=== PATIENT | male | born 1965 | race Caucasian/White ===

== ENCOUNTER 2019-02-04 22:08 | Emergency (ER) | payer BC, OTHER ==
[2019-02-04] MEDS ORDERED: Sodium Chloride 0.9% 1000 ML 1,000 ML ONE (22:37)
[2019-02-04] MEDS ORDERED: Hydromorphone 1 mg/ml Ampule ONE (22:40)
[2019-02-04] MEDS: Sodium Chloride 0.9% 1000 ML 1,000 ML IV STA (22:41)
[2019-02-04] MEDS: DILAUDID 2 MG INJECTION IV PRN (22:42)
[2019-02-04] MEDS ORDERED: LOPRESSOR 5 MG/5 ML INJECTION IV ONE (23:38)
[2019-02-04] MEDS: LOPRESSOR 5 MG/5 ML INJECTION IV ONE (23:39)
[2019-02-05] MEDS ORDERED: DILAUDID 2 MG INJECTION IV PRN (00:10)
[2019-02-05] MEDS ORDERED: Hydromorphone 1 mg/ml Ampule ONE (00:15)
[2019-02-05] MEDS: DILAUDID 2 MG INJECTION IV STA (00:17)
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
[2019-02-05] MEDS ORDERED: Norco 10/325 MG Tablet ONE (00:27)
[2019-02-05] MEDS: Norco 10/325 MG Tablet PO ONE (00:31)
[2019-02-05 01:09] VITALS: BP 182/130; PULSE 90; O2SAT 96
[2019-02-05] MEDS ORDERED: TORAdol 30 mg Injection ONE (01:16)
[2019-02-05] MEDS: TORAdol 30 mg Injection IV ONE (01:17)
== END 2019-02-05 01:36 | disposition home or self-care (01) ==
LOC: ED 22:08
DX: T33.832A Superficial frostbite of left toe(s), initial encounter (principal); S90.425A Blister (nonthermal), left lesser toe(s), initial encounter; W93.8XXA Exposure to other excessive cold of man-made origin, initial encounter; Y93.89 Activity, other specified; Y92.89 Other specified places as the place of occurrence of the external cause
CPT/HCPCS: 96360; 96374; 96375; 96376; 99284; J1170; J1885; A9270-GY

== ENCOUNTER 2019-02-12 14:41 | Inpatient (IN) | payer OTHER ==
[2019-02-12] MEDS ORDERED: Sodium Chloride 0.9% 1000 ML 1,000 ML IV STA (15:32)
[2019-02-12] MEDS ORDERED: Zofran 4 MG/2 ML VIAL IV ONE (15:32)
[2019-02-12] MEDS ORDERED: Hydromorphone 1 mg/ml Ampule IV ONE (15:34)
[2019-02-12 16:34] LABS: Absolute Neutrophil Ct (ANC) 7.81 (1.4-6.9); BASOPHIL % 0.2 % (0.0-0.4); Basophil (Absolute #) 0.03 (0-0.4); Eosinophil % 8.7 % (0.00-5.0); Eosinophil (Absolute #) 1.05 (0-0.5); Hematocrit 44.9 % (42-50); Hemoglobin 15.3 gm/dl (12.5-18.0); Lymphocyte (Absolute #) 2.48 (1.0-4.6); Lymphocytes % 20.6 % (24.0-44.0); Mean Cell Volume 87.7 fl (78-100); Mean Corpuscular Hemoglobin 29.9 pg (26-32); Mean Corpuscular Hgb Concent. 34.1 g/dl (32-36); Mean Platelet Volume 10.3 fl (6-9.5); Monocyte (Absolute #) 0.64 (0.0-1.3); Monocytes % 5.3 % (0.0-12.0); Neutrophil % 65.2 % (36.0-66.0); Platelet Count 231 K/mm3 (150-450); Red Blood Count 5.12 M/mm3 (4.1-5.6); Red Cell Distribution Width 12.9 % (11.5-14.0)
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
[2019-02-12 16:44] LABS: ALBUMIN 4.8 g/dL (3.5-5.0); ANION GAP 17.5 MEQ/L (5-15); BILIRUBIN,TOTAL 0.7 mg/dL (0.2-1.3); Creatinine 1 1.35 mg/dL (0.66-1.25); Potassium 4.1 mmol/L (3.5-5.1); Total Protein 9.1 g/dL (6.3-8.2)
[2019-02-12] MEDS ORDERED: Hydromorphone 1 mg/ml Ampule ONE ×2 (16:54→21:16)
[2019-02-12] MEDS ORDERED: ZOFRAN ODT 4 MG ONE (16:54)
[2019-02-12] MEDS ORDERED: Hydromorphone 1 mg/ml Ampule IM ONE (16:56)
[2019-02-12] MEDS ORDERED: ZOFRAN ODT 4 MG PO ONE (16:58)
[2019-02-12] MEDS ORDERED: Catapres 0.1 MG PO ONE (17:15)
[2019-02-12] MEDS ORDERED: Catapres 0.1 MG ONE (17:19)
[2019-02-12] MEDS ORDERED: Sodium Chloride 0.9% 1000 ML 1,000 ML ONE (18:36)
[2019-02-12] MEDS ORDERED: VASOTEC I.V. 2.5 MG IV ONE ×2 (20:18→20:20)
[2019-02-12] MEDS ORDERED: Unasyn 3GM / NaCl 100ML 3 GM/100 ML IVPB IV STA (20:19)
[2019-02-12] MEDS ORDERED: Unasyn 3GM / NaCl 100ML 3 GM/100 ML IVPB ONE (20:20)
[2019-02-12] MEDS ORDERED: VASOTEC I.V. 2.5 MG IV PRN (21:14)
[2019-02-12] MEDS ORDERED: Zofran 4 MG/2 ML VIAL IV PRN (21:14)
[2019-02-12] MEDS ORDERED: DILAUDID 2 MG INJECTION IV PRN (21:14)
[2019-02-12] MEDS ORDERED: TYLENOL 325 MG PO PRN (21:14)
[2019-02-12] MEDS: DILAUDID 2 MG INJECTION IV PRN (23:49)
[2019-02-13] MEDS: FLAGYL 500 MG IVPB 500 MG/100 ML BAG IV SCH ×4 (00:35→17:08)
[2019-02-13] MEDS: DILAUDID 2 MG INJECTION IV PRN ×9 (01:42→21:30)
[2019-02-13] MEDS: Unasyn 3GM / NaCl 100ML 3 GM/100 ML IVPB IV SCH ×4 (02:29→17:07)
[2019-02-13] MEDS: Sodium Chloride 0.9% 1000 ML 1,000 ML IV SCH ×2 (04:16→22:09)
[2019-02-13 05:15] LABS: Absolute Neutrophil Ct (ANC) 5.19 (1.4-6.9); BASOPHIL % 0.2 % (0.0-0.4); Basophil (Absolute #) 0.02 (0-0.4); Eosinophil % 12.6 % (0.00-5.0); Eosinophil (Absolute #) 1.16 (0-0.5); Hematocrit 38.6 % (42-50); Hemoglobin 13.2 gm/dl (12.5-18.0); Lymphocyte (Absolute #) 2.29 (1.0-4.6); Lymphocytes % 24.8 % (24.0-44.0); Mean Cell Volume 88.7 fl (78-100); Mean Corpuscular Hemoglobin 30.3 pg (26-32); Mean Corpuscular Hgb Concent. 34.2 g/dl (32-36); Mean Platelet Volume 10.3 fl (6-9.5); Monocyte (Absolute #) 0.58 (0.0-1.3); Monocytes % 6.3 % (0.0-12.0); Neutrophil % 56.1 % (36.0-66.0); Platelet Count 213 K/mm3 (150-450); Red Blood Count 4.35 M/mm3 (4.1-5.6); Red Cell Distribution Width 12.7 % (11.5-14.0); White Blood Count 9.2 K/mm3 (4.0-10.5)
[2019-02-13 05:29] LABS: ANION GAP 12.9 MEQ/L (5-15); BLOOD UREA NITROGEN 23 mg/dL (9-20); CHLORIDE 106 mmol/L (98-107); Calcium 8.9 mg/dL (8.4-10.2); Carbon Dioxide 24 mmol/L (22-30); Creatinine 1 1.08 mg/dL (0.66-1.25); Glucose 92 mg/dL (74-106); Potassium 4.2 mmol/L (3.5-5.1); SODIUM 139 mmol/L (137-145)
[2019-02-13] MEDS ORDERED: PHARMACY DOSING REQUIRED: VANCOMYCIN IV ONE (08:48)
[2019-02-13] MEDS: VANCOCIN 1 GM VIAL*** 1.25 GM in Sodium Chloride 0.9% 250 ML 250 ML IV SCH ×2 (09:54→22:07)
[2019-02-13] MEDS: Nicoderm CQ 21 MG TOP SCH (10:27)
[2019-02-13] MEDS: Zestril 5 MG PO SCH (10:27)
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
[2019-02-13 10:53] LABS: Barbiturate,Urine NEGATIVE (NEGATIVE); Benzodiazepine,Urine NEGATIVE (NEGATIVE); Cocaine,Urine NEGATIVE (NEGATIVE); Methadone,Urine NEGATIVE (NEGATIVE); Opiate,Urine POSITIVE (NEGATIVE); PCP,Urine NEGATIVE (NEGATIVE); THC,Urine NEGATIVE (NEGATIVE)
[2019-02-13 11:39] LABS: Amphetamine,Urine POSITIVE (NEGATIVE)
--- NOTE | 2019-02-13 12:51 | XRAY ---
Indication: Ultrasound guidance for PICC line placement. Initial sonographic imaging of the right upper extremity was performed for localization of patent veins. A patent basilic vein identified above the elbow. Ultrasound guidance was then used for PICC line insertion. Full PICC line insertion is reported separately.
--- NOTE | 2019-02-13 12:51 | XRAY ---
Indication: Long-term IV access and therapy for left foot osteomyelitis. Informed consent obtained. Patient was placed on the fluoroscopic table in a supine position. Initial sonographic imaging of the right upper extremity was performed for localization of patent veins. The right upper extremity was then prepped and draped in sterile fashion. Tourniquet applied. 1% lidocaine plain used for local anesthesia. Using ultrasound guidance and a micropuncture needle, a basilic vein above the elbow was successfully percutaneously cannulized. A floppy tip 0.018 guidewire inserted. Tourniquet released. Needle was exchanged for a 5 Martiniquais dilator peel-away sheath catheter. Ultimately a 5 Martiniquais double-lumen PICC line was inserted over a longer 0.018 guidewire with the tip positioned in the distal SVC using fluoroscopic guidance. Guidewire removed. Both ports flushed with heparinized saline. Catheter was secured. Postoperative instructions and orders given. Patient discharged in good condition. Impression: Technically successful right upper extremity PICC line placement using ultrasound and fluoroscopic guidance. No immediate complications. Approximately 3 cc blood loss. Approximately 0.3 minute of fluoroscopy used. Catheter length is 40 cm.
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
[2019-02-13] MEDS ORDERED: TORAdol 30 mg Injection IV PRN (21:41)
[2019-02-13] MEDS ORDERED: Unasyn 3GM / NaCl 100ML 3 GM/100 ML IVPB ONE (23:50)
[2019-02-14] MEDS: FLAGYL 500 MG IVPB 500 MG/100 ML BAG IV SCH ×4 (00:05→17:12)
[2019-02-14] MEDS: Unasyn 3GM / NaCl 100ML 3 GM/100 ML IVPB IV SCH ×4 (00:05→17:13)
[2019-02-14] MEDS: DILAUDID 2 MG INJECTION IV PRN ×7 (02:43→17:42)
[2019-02-14] MEDS: TORAdol 30 mg Injection IV PRN ×4 (04:12→22:14)
[2019-02-14] MEDS ORDERED: Unasyn 3GM / NaCl 100ML 3 GM/100 ML IVPB ONE (04:48)
[2019-02-14 05:16] LABS: BASOPHIL % 0.2 % (0.0-0.4); Basophil (Absolute #) 0.02 (0-0.4); Eosinophil (Absolute #) 0.98 (0-0.5); Hematocrit 39.3 % (42-50); Hemoglobin 13.5 gm/dl (12.5-18.0); Lymphocyte (Absolute #) 1.52 (1.0-4.6); Lymphocytes % 18.6 % (24.0-44.0); Mean Cell Volume 87.9 fl (78-100); Mean Corpuscular Hemoglobin 30.2 pg (26-32); Mean Corpuscular Hgb Concent. 34.4 g/dl (32-36); Mean Platelet Volume 10.7 fl (6-9.5); Monocyte (Absolute #) 0.56 (0.0-1.3); Monocytes % 6.8 % (0.0-12.0); Neutrophil % 62.4 % (36.0-66.0); Platelet Count 213 K/mm3 (150-450); Red Blood Count 4.47 M/mm3 (4.1-5.6); Red Cell Distribution Width 12.7 % (11.5-14.0); White Blood Count 8.2 K/mm3 (4.0-10.5)
[2019-02-14 05:28] LABS: ANION GAP 12.5 MEQ/L (5-15); BLOOD UREA NITROGEN 17 mg/dL (9-20); CHLORIDE 107 mmol/L (98-107); Calcium 8.7 mg/dL (8.4-10.2); Carbon Dioxide 25 mmol/L (22-30); Creatinine 1 1.05 mg/dL (0.66-1.25); Glucose 94 mg/dL (74-106); Potassium 4.2 mmol/L (3.5-5.1); SODIUM 140 mmol/L (137-145)
[2019-02-14] MEDS: Nicoderm CQ 21 MG TOP SCH (08:59)
[2019-02-14] MEDS: Zestril 5 MG PO SCH (09:00)
[2019-02-14] MEDS: VANCOCIN 1 GM VIAL*** 1.25 GM in Sodium Chloride 0.9% 250 ML 250 ML IV SCH ×2 (09:00→20:31)
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
[2019-02-14] MEDS: NEURONTIN 300 MG PO SCH ×3 (10:55→20:25)
[2019-02-14] MEDS ORDERED: Zestril 10 MG PO SCH (12:30)
[2019-02-14] MEDS ORDERED: Zestril 5 MG PO SCH (13:00)
[2019-02-14] MEDS: Sodium Chloride 0.9% 1000 ML 1,000 ML IV SCH (15:17)
[2019-02-14] MEDS ORDERED: TROUGH DRUG LEVELS IJ ONE (21:30)
[2019-02-14] MEDS ORDERED: LOPRESSOR 5 MG/5 ML INJECTION IV SCH (23:45)
[2019-02-14] MEDS ORDERED: Zestril 10 MG PO ONE (23:56)
[2019-02-15] MEDS ORDERED: LOPRESSOR 5 MG/5 ML INJECTION IV ONE ×2 (00:02→03:51)
[2019-02-15] MEDS: Unasyn 3GM / NaCl 100ML 3 GM/100 ML IVPB IV SCH ×2 (00:04→05:10)
[2019-02-15] MEDS: FLAGYL 500 MG IVPB 500 MG/100 ML BAG IV SCH ×2 (00:04→05:11)
[2019-02-15] MEDS: TORAdol 30 mg Injection IV PRN ×2 (04:07→10:26)
[2019-02-15] MEDS: DILAUDID 2 MG INJECTION IV PRN ×7 (05:10→21:57)
[2019-02-15 05:14] LABS: Absolute Neutrophil Ct (ANC) 4.38 (1.4-6.9); BASOPHIL % 0.3 % (0.0-0.4); Basophil (Absolute #) 0.02 (0-0.4); Hematocrit 42.5 % (42-50); Hemoglobin 14.4 gm/dl (12.5-18.0); Lymphocytes % 19.1 % (24.0-44.0); Mean Cell Volume 88.2 fl (78-100); Mean Corpuscular Hemoglobin 29.9 pg (26-32); Mean Corpuscular Hgb Concent. 33.9 g/dl (32-36); Mean Platelet Volume 9.8 fl (6-9.5); Monocyte (Absolute #) 0.43 (0.0-1.3); Monocytes % 5.9 % (0.0-12.0); Neutrophil % 59.7 % (36.0-66.0); Platelet Count 225 K/mm3 (150-450); Red Blood Count 4.82 M/mm3 (4.1-5.6); Red Cell Distribution Width 12.8 % (11.5-14.0); White Blood Count 7.3 K/mm3 (4.0-10.5)
[2019-02-15 05:40] LABS: ANION GAP 13.5 MEQ/L (5-15); BLOOD UREA NITROGEN 19 mg/dL (9-20); CHLORIDE 108 mmol/L (98-107); Calcium 9.1 mg/dL (8.4-10.2); Carbon Dioxide 25 mmol/L (22-30); Creatinine 1 0.99 mg/dL (0.66-1.25); Glucose 121 mg/dL (74-106); Potassium 4.2 mmol/L (3.5-5.1); SODIUM 142 mmol/L (137-145)
[2019-02-15] MEDS: LOPRESSOR 5 MG/5 ML INJECTION IV PRN ×2 (06:13→12:23)
[2019-02-15] MEDS: Zestril 20 MG*** 20 MG, hydroDIURIL 25 MG*** 25 MG PO SCH ×2 (08:23)
[2019-02-15] MEDS ORDERED: Ativan 2 MG/1 ML VIAL IV PRN (08:32)
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
[2019-02-15] MEDS ORDERED: Zestril 10 MG PO SCH (10:00)
[2019-02-15] MEDS: Levofloxacin 500MG/100ML D5W 500 MG/100 ML BAG IV SCH (10:25)
[2019-02-15] MEDS: Lopressor 25MG Tab PO SCH ×2 (10:25→21:13)
[2019-02-15] MEDS: Nicoderm CQ 21 MG TOP SCH (11:22)
[2019-02-15] MEDS: Catapres 0.1 MG PO SCH ×2 (15:28→21:13)
[2019-02-16] MEDS: DILAUDID 2 MG INJECTION IV PRN ×9 (00:01→22:16)
[2019-02-16] MEDS: TORAdol 30 mg Injection IV PRN ×3 (04:50→21:17)
[2019-02-16 04:58] LABS: Absolute Neutrophil Ct (ANC) 4.11 (1.4-6.9); BASOPHIL % 0.3 % (0.0-0.4); Basophil (Absolute #) 0.02 (0-0.4); Eosinophil % 16.1 % (0.00-5.0); Eosinophil (Absolute #) 1.22 (0-0.5); Hematocrit 44.7 % (42-50); Hemoglobin 15.1 gm/dl (12.5-18.0); Lymphocyte (Absolute #) 1.74 (1.0-4.6); Mean Cell Volume 88.5 fl (78-100); Mean Corpuscular Hemoglobin 29.9 pg (26-32); Mean Corpuscular Hgb Concent. 33.8 g/dl (32-36); Monocyte (Absolute #) 0.47 (0.0-1.3); Monocytes % 6.2 % (0.0-12.0); Neutrophil % 54.4 % (36.0-66.0); Platelet Count 225 K/mm3 (150-450); Red Blood Count 5.05 M/mm3 (4.1-5.6); Red Cell Distribution Width 13.1 % (11.5-14.0); White Blood Count 7.6 K/mm3 (4.0-10.5)
[2019-02-16 05:06] LABS: ANION GAP 15.1 MEQ/L (5-15); BLOOD UREA NITROGEN 24 mg/dL (9-20); CHLORIDE 102 mmol/L (98-107); Calcium 9.3 mg/dL (8.4-10.2); Carbon Dioxide 26 mmol/L (22-30); Creatinine 1 1.08 mg/dL (0.66-1.25); Glucose 100 mg/dL (74-106); Potassium 4.3 mmol/L (3.5-5.1); SODIUM 139 mmol/L (137-145)
[2019-02-16] MEDS: Lopressor 25MG Tab PO SCH ×2 (07:35→21:18)
[2019-02-16] MEDS: Catapres 0.1 MG PO SCH ×3 (07:36→21:18)
[2019-02-16] MEDS: Nicoderm CQ 21 MG TOP SCH (07:36)
[2019-02-16] MEDS: Levofloxacin 500MG/100ML D5W 500 MG/100 ML BAG IV SCH (07:37)
[2019-02-16] MEDS: Zestril 20 MG*** 20 MG, hydroDIURIL 25 MG*** 25 MG PO SCH ×2 (07:38)
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
[2019-02-16] MEDS ORDERED: FLUZONE QUAD 2019-2020 SYRINGE IM ONE (10:00)
[2019-02-17] MEDS: DILAUDID 2 MG INJECTION IV PRN ×9 (00:16→21:06)
[2019-02-17 05:44] LABS: Hematocrit 43.6 % (42-50); Mean Cell Volume 87.9 fl (78-100); Mean Corpuscular Hemoglobin 30.2 pg (26-32); Mean Corpuscular Hgb Concent. 34.4 g/dl (32-36); Mean Platelet Volume 10.2 fl (6-9.5); Platelet Count 225 K/mm3 (150-450); Red Blood Count 4.96 M/mm3 (4.1-5.6); Red Cell Distribution Width 12.8 % (11.5-14.0); White Blood Count 8.2 K/mm3 (4.0-10.5)
[2019-02-17 06:10] LABS: ANION GAP 13.3 MEQ/L (5-15); BLOOD UREA NITROGEN 27 mg/dL (9-20); CHLORIDE 107 mmol/L (98-107); Calcium 9.1 mg/dL (8.4-10.2); Carbon Dioxide 23 mmol/L (22-30); Creatinine 1 1.17 mg/dL (0.66-1.25); Glucose 86 mg/dL (74-106); Potassium 4.2 mmol/L (3.5-5.1); SODIUM 139 mmol/L (137-145)
[2019-02-17 07:50] LABS: Eosinophil 4 % (0.00-3.0); Lymphocytes 17 % (24-44); Monocyte 5 % (0.0-12.0); Neutrophils 74 % (36.-66.); Total Cells Counted 100
[2019-02-17 07:51] LABS: Platelet Estimate NORMAL (NORMAL)
[2019-02-17] MEDS: TORAdol 30 mg Injection IV PRN ×2 (08:39→18:46)
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
[2019-02-17] MEDS: Nicoderm CQ 21 MG TOP SCH (10:44)
[2019-02-17] MEDS: Zestril 20 MG*** 20 MG, hydroDIURIL 25 MG*** 25 MG PO SCH ×2 (10:46)
[2019-02-17] MEDS: Catapres 0.1 MG PO SCH ×3 (10:46→21:07)
[2019-02-17] MEDS: Lopressor 25MG Tab PO SCH ×2 (10:46→21:07)
[2019-02-17] MEDS ORDERED: hydroDIURIL 25 MG ONE (10:48)
[2019-02-17] MEDS: Levofloxacin 500MG/100ML D5W 500 MG/100 ML BAG IV SCH (10:57)
[2019-02-18] MEDS: DILAUDID 2 MG INJECTION IV PRN ×7 (00:14→20:04)
[2019-02-18] MEDS: TORAdol 30 mg Injection IV PRN (03:58)
[2019-02-18 06:31] LABS: Hematocrit 43.1 % (42-50); Hemoglobin 14.7 gm/dl (12.5-18.0); Mean Cell Volume 88.1 fl (78-100); Mean Corpuscular Hemoglobin 30.1 pg (26-32); Mean Corpuscular Hgb Concent. 34.1 g/dl (32-36); Mean Platelet Volume 10.3 fl (6-9.5); Platelet Count 225 K/mm3 (150-450); Red Blood Count 4.89 M/mm3 (4.1-5.6); Red Cell Distribution Width 12.9 % (11.5-14.0); White Blood Count 7.8 K/mm3 (4.0-10.5)
[2019-02-18 06:51] LABS: ANION GAP 13.1 MEQ/L (5-15); BLOOD UREA NITROGEN 30 mg/dL (9-20); CHLORIDE 107 mmol/L (98-107); Carbon Dioxide 25 mmol/L (22-30); Creatinine 1 1.22 mg/dL (0.66-1.25); Glucose 96 mg/dL (74-106); Potassium 4.2 mmol/L (3.5-5.1); SODIUM 141 mmol/L (137-145)
[2019-02-18 07:37] LABS: Eosinophil 12 % (0.00-3.0); Lymphocytes 30 % (24-44); Monocyte 7 % (0.0-12.0); Neutrophils 51 % (36.-66.); Platelet Estimate NORMAL (NORMAL); Total Cells Counted 100
[2019-02-18] MEDS: Nicoderm CQ 21 MG TOP SCH (08:49)
[2019-02-18] MEDS: Levofloxacin 500MG/100ML D5W 500 MG/100 ML BAG IV SCH (10:09)
[2019-02-18] MEDS: Lopressor 25MG Tab PO SCH ×2 (10:09→22:55)
[2019-02-18] MEDS: Catapres 0.1 MG PO SCH ×3 (10:15→22:55)
[2019-02-18] MEDS ORDERED: hydroDIURIL 25 MG ONE (10:27)
[2019-02-18] MEDS: Zestril 20 MG*** 20 MG, hydroDIURIL 25 MG*** 25 MG PO SCH ×2 (10:35)
[2019-02-18] MEDS: TORAdol 30 mg Injection IV SCH ×2 (12:37→17:50)
[2019-02-18] MEDS: OXYCODONE-ACETAMINOPHEN 10-325 PO PRN ×2 (18:03→22:32)
[2019-02-19] MEDS: TORAdol 30 mg Injection IV SCH ×2 (00:12→05:38)
[2019-02-19] MEDS: DILAUDID 2 MG INJECTION IV PRN ×8 (00:20→22:28)
[2019-02-19] MEDS: OXYCODONE-ACETAMINOPHEN 10-325 PO PRN ×2 (05:39→21:11)
[2019-02-19 06:27] LABS: Hematocrit 46.3 % (42-50); Hemoglobin 15.9 gm/dl (12.5-18.0); Mean Corpuscular Hemoglobin 30.6 pg (26-32); Mean Corpuscular Hgb Concent. 34.3 g/dl (32-36); Mean Platelet Volume 10.3 fl (6-9.5); Platelet Count 204 K/mm3 (150-450); White Blood Count 7.6 K/mm3 (4.0-10.5)
[2019-02-19 06:49] LABS: ANION GAP 13.7 MEQ/L (5-15); Calcium 9.1 mg/dL (8.4-10.2); Creatinine 1 1.48 mg/dL (0.66-1.25); Potassium 4.3 mmol/L (3.5-5.1)
[2019-02-19 08:12] LABS: Eosinophil 15 % (0.00-3.0); Lymphocytes 30 % (24-44); Monocyte 5 % (0.0-12.0); Neutrophils 50 % (36.-66.); Platelet Estimate NORMAL (NORMAL); Total Cells Counted 100
[2019-02-19] MEDS: Lopressor 25MG Tab PO SCH ×2 (09:39→21:11)
[2019-02-19] MEDS: Catapres 0.1 MG PO SCH ×3 (09:39→21:11)
[2019-02-19] MEDS: Levofloxacin 500MG/100ML D5W 500 MG/100 ML BAG IV SCH (09:40)
[2019-02-19] MEDS: Nicoderm CQ 21 MG TOP SCH (09:40)
[2019-02-19] MEDS: Zestril 20 MG*** 20 MG, hydroDIURIL 25 MG*** 25 MG PO SCH ×2 (10:40)
[2019-02-20] MEDS: DILAUDID 2 MG INJECTION IV PRN ×3 (00:32→07:50)
[2019-02-20] MEDS: OXYCODONE-ACETAMINOPHEN 10-325 PO PRN ×2 (02:08→09:05)
[2019-02-20 05:19] LABS: Hematocrit 40.3 % (42-50); Hemoglobin 13.9 gm/dl (12.5-18.0); Mean Corpuscular Hemoglobin 30.3 pg (26-32); Mean Corpuscular Hgb Concent. 34.5 g/dl (32-36); Mean Platelet Volume 10.2 fl (6-9.5); Platelet Count 218 K/mm3 (150-450); Red Blood Count 4.58 M/mm3 (4.1-5.6); Red Cell Distribution Width 12.8 % (11.5-14.0); White Blood Count 7.6 K/mm3 (4.0-10.5)
[2019-02-20 05:29] LABS: ANION GAP 11.8 MEQ/L (5-15); BLOOD UREA NITROGEN 30 mg/dL (9-20); CHLORIDE 107 mmol/L (98-107); Calcium 8.9 mg/dL (8.4-10.2); Carbon Dioxide 24 mmol/L (22-30); Creatinine 1 1.17 mg/dL (0.66-1.25); Glucose 108 mg/dL (74-106); Potassium 4.1 mmol/L (3.5-5.1); SODIUM 139 mmol/L (137-145)
[2019-02-20 06:03] LABS: ATYPICAL LYMPHS 1 %; BAND 1 % (0.0-2.0); Basophil 1 % (0.0-1.0); Eosinophil 15 % (0.00-3.0); Lymphocytes 27 % (24-44); Metamyelocyte 1 %; Monocyte 6 % (0.0-12.0); Neutrophils 48 % (36.-66.); Platelet Estimate NORMAL (NORMAL); Total Cells Counted 100
[2019-02-20 07:41] VITALS: BP 144/88; PULSE 86; O2SAT 95
[2019-02-20] MEDS: Levofloxacin 500MG/100ML D5W 500 MG/100 ML BAG IV SCH (09:04)
[2019-02-20] MEDS: Zestril 20 MG*** 20 MG, hydroDIURIL 25 MG*** 25 MG PO SCH ×2 (09:05)
[2019-02-20] MEDS: Lopressor 25MG Tab PO SCH (09:05)
[2019-02-20] MEDS: Catapres 0.1 MG PO SCH (09:05)
[2019-02-20] MEDS: Nicoderm CQ 21 MG TOP SCH (09:06)
--- NOTE | 2019-02-20 10:29 | PCM.DCORD ---
- Discharge Discharge Date: 02/20/19 Disposition: Home, Self-Care Condition: Fair Prescriptions: New Clonidine HCl 0.1 mg [Catapres 0.1 MG] 0.1 mg PO TID #90 tablet Levofloxacin [Levofloxacin 500 MG Tablet] 500 mg PO QAM #4 tablet Lisinopril/Hydrochlorothiazide [Lisinopril-Hctz 20-25 mg Tab] 1 each PO DAILY #30 tablet Metoprolol Tartrate 25 mg [Lopressor 25MG Tab] 25 mg PO BID #60 tab Oxycodone / APAP 10/325 mg [Oxycodone-Acetaminophen 10-325] 1 tab PO QID PRN PRN tablet PRN Reason: Pain Acetaminophen 325 mg [Tylenol 325 mg] 650 mg PO Q4H PRN PRN tablet PRN Reason: Pain And/Or Fever Naloxone HCl 0.4 mg/ml [Narcan 0.4 MG/ML] 0.4 mg NS UD PRN #1 vial PRN Reason: Respiratory Depression No Action No Home Meds [No Home Meds] 0 mg PO DAILY Outpatient Orders: Physical Therapy Eval & Treat Location: PHYSICAL THERAPY Additional Instructions: If his top number on his blood pressure is less than 100, hold clonidine. Bring log of blood pressures to his next visit. Keep percocet in a safe place and do not share it with anyone. Do not bear weight on your left foot. Use crutches when ambulating. Follow up with: CONSTANCE GUEVARA [ACTIVE STAFF] - 02/23/19 1:00 pm (at [place]) NIKITA VAZQUEZ [ACTIVE STAFF] - 1 Week
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
== END 2019-02-20 11:25 | disposition home or self-care (01) | DRG 949 ==
LOC: ED 14:41 → MED SURG 23:08 → OBSVTOIN 23:08
PROVIDERS: ADMIT Internal Medicine; ATTEND Internal Medicine
DX: T25.322D Burn of third degree of left foot, subsequent encounter (principal); L03.116 Cellulitis of left lower limb; I10 Essential (primary) hypertension; F19.90 Other psychoactive substance use, unspecified, uncomplicated; F41.9 Anxiety disorder, unspecified; Z72.0 Tobacco use
CPT/HCPCS: 36000; 36415; 36569; 73630; 76942; 77001; 80048; 80053; 80202; 80307; 83605; 85025; 87040; 87070; 87077; 87186; 90686; 93005; 94762; 96360; 96365; 96372; 96374; 96375; 96376; 99285; 99291; A6457; J0295; J1170; J1642; J1885; J1956; J3370; Q0162; A9270-GY

== ENCOUNTER 2019-07-01 09:41 | Emergency (ER) | payer OTHER ==
[2019-07-01] MEDS ORDERED: Norflex 60 MG/2 ML IM ONE (10:05)
[2019-07-01] MEDS ORDERED: NALBUPHINE HCL 10 MG/1 ML INJECTION IM STA (10:05)
[2019-07-01] MEDS ORDERED: Lopressor 50 MG PO ONE (10:08)
[2019-07-01] MEDS ORDERED: Zestril 20 MG*** 20 MG, hydroDIURIL 25 MG*** 25 MG PO ONE ×2 (10:08)
[2019-07-01] MEDS ORDERED: Lopressor 50 MG ONE (10:24)
[2019-07-01] MEDS ORDERED: Norflex 60 MG/2 ML ONE (10:24)
[2019-07-01] MEDS ORDERED: Nubain 10 MG/ML ONE (10:24)
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
[2019-07-01 11:12] VITALS: BP 192/115; PULSE 66; O2SAT 98
[2019-07-01] MEDS ORDERED: Nubain 10 MG/ML IV ONE (11:24)
--- NOTE | 2019-07-01 20:33 | XRAY ---
Indication: Left-sided sciatica. Comparison: November 08, 2015. 5 views lumbar spine again demonstrates normal alignment with minimal multilevel anterior endplate spurring, minimal L5-S1 disc space narrowing, mild L5-S1 degenerative facet arthropathy, and mild aortic calcifications. Incidental mild diffuse fecal stasis. No other bony, articular, or soft tissue abnormalities.
== END 2019-07-01 11:14 | disposition home or self-care (01) ==
LOC: ED 09:41
DX: I16.0 Hypertensive urgency (principal); M54.42 Lumbago with sciatica, left side; M25.552 Pain in left hip; I10 Essential (primary) hypertension
CPT/HCPCS: 72110; 96372; 99284; J2300; J2360; A9270-GY

== ENCOUNTER 2020-12-05 00:01 | Emergency (ER) | payer OTHER ==
[2020-12-05] MEDS ORDERED: XYLOCAINE 1% HCL 20 ML MDV IJ ONE (00:02)
[2020-12-05] MEDS ORDERED: Rocephin 1000 MG INJ IM ONE (00:23)
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
[2020-12-05] MEDS ORDERED: Rocephin 1000 MG INJ ONE (00:35)
[2020-12-05 01:21] VITALS: BP 161/97; PULSE 81; O2SAT 98
== END 2020-12-05 01:07 | disposition home or self-care (01) ==
LOC: ED 00:01
DX: K59.00 Constipation, unspecified (principal)
CPT/HCPCS: 96372; 99283; J0696

== ENCOUNTER 2021-05-08 12:21 | Emergency (ER) | payer OTHER ==
[2012-12-16 07:06] VITALS: BP 126/88
== END 2021-05-08 13:26 | disposition left against medical advice (07) ==
LOC: ED 12:21
DX: Z53.9 Procedure and treatment not carried out, unspecified reason (principal)
CPT/HCPCS: 99282; G0463